=== PATIENT | female | born 1940 | race Caucasian/White ===

== ENCOUNTER → 2016-08-31 | Outpatient (CLI) | payer MEDICARE, OTHER ==
[~2016-08-31] MED LIST: ALLERGY SHOTS; ASTELIN; ASTELIN NASAL SPRAY; CALCCHW12; CALCCHW12 OR; CETI10TA; CETI10TA OR; FLECTOR PATCH; LIPI20TA; LIPI20TA OR; LISI10TA4; LISI10TA4 OR; MULTIVIT PO; NASONEX; NEUR100C; NEUR100C OR; OMEP20TA7 OR; PREV15CA OR; PRIL20CA; PRIL40CA; SING10TA31; SING10TA31 OR; SKEL800T5; SKEL800T5 OR; THERGRAN; VIT; VITA100T5; VITA400C; VITA400C OR; VITA500C OR; VITA500T; ZEST20TA4 OR
--- NOTE | 2016-09-01 07:27 | REP ---
TWO VIEW CHEST: Two views of the chest are performed and compared with prior study of 10/14/2005. There is mild bibasilar fibrotic change. No acute infiltrate is seen. Heart is normal in size and there is some calcification and tortuosity of the thoracic aorta. The mediastinal silhouette is unchanged. There are degenerative changes of the spine. IMPRESSION: Stable chronic fibrotic changes. No evidence of acute pulmonary disease. Signed by Willi Uribe MD 09/01/2016 01:53 P
== END ==
LOC: M ADAMS 10:47
PROVIDERS: ATTEND Physician Assistant
DX: R05 Cough (principal)

== ENCOUNTER → 2016-11-23 | Outpatient (CLI) | payer MEDICARE, OTHER ==
[2016-11-23 16:19] LABS: BASO % 0.8 % (0.0-1.0); EOS # 0.1 K/mm3 (0.0-0.50); EOS % 1.7 % (0.0-3.0); LARGE UNSTAINED CELL # 0.1 K/mm3 (0.0-0.4); LARGE UNSTAINED CELL % 1.9 % (0.0-4.0); LYMPH # 1.2 K/mm3 (1.5-4.5); LYMPH % 29.1 % (24.0-44.0); MEAN CORPUSCULAR HEMOGLOBIN 30.7 pg (27.0-33.0); MEAN CORPUSCULAR HGB CONC 32.9 g/dl (32.0-36.5); MEAN CORPUSCULAR VOLUME 93.2 fl (80.0-96.0); MONO # 0.2 K/mm3 (0.0-0.8); MONO % 5.2 % (0.0-5.0); NEUTROPHILS # 2.4 K/mm3 (1.8-7.7); NEUTROPHILS % 61.2 % (36.0-66.0); PLATELET COUNT, AUTOMATED 279 k/mm3 (150-450)
[2016-11-23 16:32] LABS: ALBUMIN 3.8 GM/DL (3.2-5.2); ALBUMIN/GLOBULIN RATIO 1.19 (1.00-1.93); ALKALINE PHOSPHATASE 62 U/L (45-117); ALT/SGPT 29 U/L (12-78); ANION GAP 4 MEQ/L (8-16); AST/SGOT 16 U/L (15-37); BILIRUBIN,TOTAL 0.3 MG/DL (0.2-1.0); BLOOD UREA NITROGEN 22 MG/DL (7-18); CALCIUM LEVEL 8.9 MG/DL (8.8-10.2); CARBON DIOXIDE LEVEL 33 MEQ/L (21-32); CHLORIDE LEVEL 105 MEQ/L (98-107); CREATININE FOR GFR 1.07 MG/DL (0.55-1.02); GLOMERULAR FILTRATION RATE 52.9 (>39); GLUCOSE, FASTING 106 MG/DL (83-110); POTASSIUM SERUM 4.5 MEQ/L (3.5-5.1); SODIUM LEVEL 142 MEQ/L (136-145)
[2016-11-25 09:09] LABS: THYROID PEROXIDASE ANTIBODY < 28.0 U/ML (<60.0)
[2016-11-26 09:27] LABS: ALBUMIN 4.09 GM/DL (3.29-5.55); ALBUMIN % 58.4 % (55.8-66.1); GAMMA GLOBULIN % 14.4 % (11.1-18.8)
== END ==
LOC: M ADAMS 08:35
PROVIDERS: ATTEND Allergy & Immunology
DX: L29.9 Pruritus, unspecified (principal); R53.81 Other malaise

== ENCOUNTER → 2018-04-14 | Outpatient (REF) | payer MEDICARE, OTHER ==
[2018-04-14 14:59] LABS: IRON (FE) 83 UG/DL (50-170); PERCENT SATURATION 26.8 % (13.2-45.0); TOTAL IRON BINDING CAPACITY 310 UG/DL (250-450)
== END ==
LOC: M LAB REF 13:04
DX: D64.9 Anemia, unspecified (principal)
CPT/HCPCS: 83550

== ENCOUNTER → 2020-03-02 | Outpatient (CLI) | payer MEDICARE, BC, OTHER ==
--- NOTE | 2020-03-02 14:54 | REPVR ---
PROCEDURE INFORMATION: Exam: CT Maxillofacial Without Contrast, Sinus Exam date and time: 03/02/2020 2:47 PM Age: 79 years old Clinical indication: Condition or disease; Other: Sinusitis; Additional info: Chronic pansinusitis TECHNIQUE: Imaging protocol: CT Maxillofacial without contrast. Focus on the sinuses. Radiation optimization: All CT scans at this facility use at least one of these dose optimization techniques: automated exposure control; mA and/or kV adjustment per patient size (includes targeted exams where dose is matched to clinical indication); or iterative reconstruction. COMPARISON: No relevant prior studies available. FINDINGS: Frontal sinuses: Normal. No air-fluid levels. Ethmoid air cells: Minimal mucosal thickening is present in the ethmoid air cells. Sphenoid sinuses: Normal. No air-fluid levels. Maxillary sinuses: There is mild mucosal thickening in the maxillary sinuses. No air-fluid levels. 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 Orbits: The orbital structures are unremarkable. Nasal cavity/Septum: There is rightward bowing of the anterior nasal septum. Soft tissues: Unremarkable. Bones/joints: Unremarkable. IMPRESSION: 1. No acute abnormality. 2. Chronic findings as discussed above. Electronically signed by: Agustin Jiang On 03/02/2020 14:54:29 PM
== END ==
LOC: M RAD 14:35
PROVIDERS: ATTEND Otolaryngology
DX: J32.4 Chronic pansinusitis (principal); J31.0 Chronic rhinitis

== ENCOUNTER → 2020-10-11 | Outpatient (REF) | payer MEDICARE, OTHER | LOC: M LAB REF 19:23 | PROVIDERS: ATTEND Physician Assistant | DX: D23.62 Other benign neoplasm of skin of left upper limb, including shoulder (principal) | CPT/HCPCS: 11102; 88305; G0463 ==

== ENCOUNTER → 2021-02-21 | Outpatient (CLI) | payer MEDICARE, BC ==
--- NOTE | 2021-02-21 11:22 | DEXAMM ---
INDICATION: [age] AGE REL OSTEOPOROSIS W/O FX. Bilateral hip replacement. COMPARISON: Comparison study September 06, 2015. TECHNIQUE: Bone density was measured using dual-energy x-ray absorptionmetry (DEXA). FINDINGS: AP SPINE L1-L4 BMD 1.405 g/cm2 Young Adult T-Score 1.7 Age Matched Z-Score 3.6. LEFT FOREARM, RADIUS 33% BMD 0.941 g/cm2 Young Adult T-Score 0.7 Age Matched Z-Score 3.6. IMPRESSION: There is normal bone density of the spine. There is normal bone density of the left forearm. The density of the spine has increased 9.4% since the initial exam on February 03, 2006. The density of the spine increased 0.1% since most recent exam on September 06, 2015. FOLLOW-UP: Recommendation for the next bone density exam: 5 years. <Electronically signed by Ziggy Avila > 02/21/21 [id number]
== END ==
LOC: M WHC 09:10
PROVIDERS: ATTEND Internal Medicine
DX: M81.0 Age-related osteoporosis without current pathological fracture (principal)

== ENCOUNTER → 2022-06-13 | Outpatient (CLI) | payer MEDICARE, BC, OTHER | LOC: M CARPUL 08:18 | PROVIDERS: ATTEND Internal Medicine | DX: R01.1 Cardiac murmur, unspecified (principal); I34.81 Nonrheumatic mitral (valve) annulus calcification ==

== ENCOUNTER → 2022-07-15 | Outpatient (CLI) | payer MEDICARE, BC, OTHER | LOC: M WHC 08:47 | PROVIDERS: ATTEND Specialist | DX: Z12.31 Encounter for screening mammogram for malignant neoplasm of breast (principal) ==

== ENCOUNTER → 2022-11-22 | Outpatient (CLI) | payer MEDICARE, BC, OTHER | LOC: M SLEEP 20:00 | PROVIDERS: ATTEND Internal Medicine Pulmonary Disease | DX: G47.33 Obstructive sleep apnea (adult) (pediatric) (principal) ==

== ENCOUNTER → 2023-01-02 | Outpatient (CLI) | payer MEDICARE, BC, OTHER | LOC: M PLARAD 15:15 | PROVIDERS: ATTEND Podiatrist | DX: S96.012A Strain of muscle and tendon of long flexor muscle of toe at ankle and foot level, left foot, initial encounter (principal); M79.672 Pain in left foot; X58.XXXA Exposure to other specified factors, initial encounter; Y99.9 Unspecified external cause status; Y92.9 Unspecified place or not applicable ==

== ENCOUNTER → 2023-05-30 | Outpatient (CLI) | payer MEDICARE, BC, OTHER | LOC: M WHC 10:28 | PROVIDERS: ATTEND Physician Assistant Medical | DX: N28.1 Cyst of kidney, acquired (principal) ==

== ENCOUNTER → 2023-07-09 | Outpatient (REF) | payer MEDICARE, BC, OTHER ==
[2023-07-09 17:39] LABS: APPEARANCE, URINE HAZY (CLEAR); BACTERIA, URINE AUTO 1+ (NEGATIVE); BILIRUBIN, URINE AUTO NEGATIVE (NEGATIVE); BLOOD, URINE BLOOD 1+ (NEGATIVE); COLOR, URINE YELLOW (YELLOW); GLUCOSE, URINE (UA) AUTO NEGATIVE (NEGATIVE); KETONE, URINE AUTO NEGATIVE (NEGATIVE); LEUKOCYTE ESTERASE, URINE AUTO 3+ (NEGATIVE); MUCUS, URINE SMALL (NEGATIVE); NITRITE, URINE AUTO NEGATIVE (NEGATIVE); PROTEIN, URINE AUTO NEGATIVE (NEGATIVE); RBC, URINE AUTO 2 /HPF (0-3); SPECIFIC GRAVITY URINE AUTO 1.014 (1.002-1.035); SQUAMOUS EPITHELIAL CELL UR AU 1 /HPF (0-6); TRANSITIONAL EPITHELIAL AUTO <1 /HPF; UROBILINOGEN, URINE AUTO 0.2 mg/dL (0.0-2.0); WBC, URINE AUTO 16 /HPF (0-3)
== END ==
LOC: M SMT 16:38
PROVIDERS: ATTEND Urology
DX: N32.9 Bladder disorder, unspecified (principal)

== ENCOUNTER → 2023-07-18 | Outpatient (CLI) | payer MEDICARE, BC, OTHER | LOC: M WHC 10:04 | PROVIDERS: ATTEND Internal Medicine | DX: Z12.31 Encounter for screening mammogram for malignant neoplasm of breast (principal) ==

== ENCOUNTER → 2023-08-08 | Outpatient (REF) | payer MEDICARE, OTHER ==
[~2023-08-08] MED LIST changes: +ATOR1TAB21 PO; +LISI10TA24 PO; +OMEP1CAP73 PO; +PROA1AER2 INH; +QVAR80AE8 INH; +SUPETAB44 PO; +SYST1SOL4 OU; +THERTAB52 PO; +VITA100093 PO; +allergy shots
[2023-08-08 13:34] LABS: APPEARANCE, URINE CLEAR (CLEAR); BACTERIA, URINE AUTO NEGATIVE (NEGATIVE); BILIRUBIN, URINE AUTO NEGATIVE (NEGATIVE); BLOOD, URINE BLOOD NEGATIVE (NEGATIVE); COLOR, URINE YELLOW (YELLOW); GLUCOSE, URINE (UA) AUTO NEGATIVE (NEGATIVE); KETONE, URINE AUTO NEGATIVE (NEGATIVE); LEUKOCYTE ESTERASE, URINE AUTO 3+ (NEGATIVE); NITRITE, URINE AUTO NEGATIVE (NEGATIVE); PROTEIN, URINE AUTO NEGATIVE (NEGATIVE); RBC, URINE AUTO 2 /HPF (0-3); SPECIFIC GRAVITY URINE AUTO 1.014 (1.002-1.035); SQUAMOUS EPITHELIAL CELL UR AU 2 /HPF (0-6); UROBILINOGEN, URINE AUTO 0.2 mg/dL (0.0-2.0); WBC, URINE AUTO 9 /HPF (0-3)
== END ==
LOC: M LAB REF 12:21
PROVIDERS: ATTEND Internal Medicine
DX: Z01.818 Encounter for other preprocedural examination (principal)

== ENCOUNTER → 2023-08-08 | Outpatient (CLI) | payer MEDICARE, BC, OTHER | LOC: M RAD 11:31 | PROVIDERS: ATTEND Urology | DX: Z01.818 Encounter for other preprocedural examination (principal); D49.4 Neoplasm of unspecified behavior of bladder; Z79.899 Other long term (current) drug therapy ==

== ENCOUNTER → 2023-08-12 | Outpatient (REF) | payer MEDICARE, OTHER ==
[2023-08-12 12:24] LABS: INR 0.97; PROTHROMBIN TIME 12.6 SECONDS (12.5-14.5)
[2023-08-12 12:25] LABS: PARTIAL THROMBOPLASTIN TIME 26.7 SECONDS (24.8-34.2)
== END ==
LOC: M LAB REF 12:05
PROVIDERS: ATTEND Internal Medicine
DX: Z01.818 Encounter for other preprocedural examination (principal); D49.4 Neoplasm of unspecified behavior of bladder

== ENCOUNTER 2023-08-18 06:50 | Day surgery (SDC) | payer MEDICARE, BC, OTHER ==
[~2023-08-18] VITALS: Ht 156.2 cm; Wt 78.8 kg
[2023-08-18] MEDS ORDERED: propofoL 200 MG/20 ML VIAL As Ordered ONE (06:56)
[2023-08-18] MEDS ORDERED: SUGAMMADEX SODIUM 500 MG/5 ML VIAL (BRIDION) As Ordered ONE (06:56)
[2023-08-18] MEDS ORDERED: ROCURONIUM BROMIDE 50MG/5ML VIAL As Ordered ONE (06:56)
[2023-08-18] MEDS ORDERED: LIDOCAINE 2% 100MG/5ML SDV (FOR ANES.) As Ordered ONE (06:56)
[2023-08-18] MEDS ORDERED: ONDANSETRON 4MG 2ML VIAL As Ordered ONE (06:57)
[2023-08-18] MEDS ORDERED: LR 1,000 ML IV SCH ×2 (07:00→08:25)
[2023-08-18] MEDS ORDERED: ISOVUE-300 61% 100ML VIAL As Ordered ONE (07:23)
[2023-08-18] MEDS ORDERED: fentaNYL 100 MCG/2 ML INJECTION As Ordered ONE (07:46)
[2023-08-18] MEDS: ceFAZolin SOD 2 GM in IV 1 EA IV ONE (07:51)
[2023-08-18] MEDS ORDERED: ACETAMINOPHEN 1000MG 100ML IV BAG As Ordered ONE (07:54)
[2023-08-18] MEDS ORDERED: OXYB5TAB14 PO (08:14)
[2023-08-18] MEDS ORDERED: PYRI1TAB5 PO (08:14)
[2023-08-18] MEDS ORDERED: MACR100C43 PO (08:14)
[2023-08-18] MEDS ORDERED: ONDANSETRON 4MG 2ML VIAL IV PRN (08:25)
[2023-08-18] MEDS ORDERED: oxyCODONE 5MG TAB PO PRN (08:25)
[2023-08-18] MEDS ORDERED: fentaNYL 100 MCG/2 ML INJECTION IV PRN (08:25)
[2023-08-18 09:45] VITALS: BP 129/62; TEMP 96.9; O2SAT 97
== END 2023-08-18 09:50 | disposition home or self-care (01) ==
LOC: M SDC 06:50
PROVIDERS: ATTEND Urology
DX: C67.9 Malignant neoplasm of bladder, unspecified (principal); I10 Essential (primary) hypertension; E78.5 Hyperlipidemia, unspecified; K21.9 Gastro-esophageal reflux disease without esophagitis; J45.909 Unspecified asthma, uncomplicated; Z79.899 Other long term (current) drug therapy; Z79.51 Long term (current) use of inhaled steroids; G47.33 Obstructive sleep apnea (adult) (pediatric); J30.2 Other seasonal allergic rhinitis
CPT/HCPCS: 52235; 88305; J0131; J0690; J1100; J2405; J3010; Q9967

== ENCOUNTER → 2023-11-18 | Outpatient (REF) | payer MEDICARE, BC, OTHER ==
[~2023-11-18] MED LIST changes: +MACR100C43 PO; +OXYB5TAB14 PO; +PYRI1TAB5 PO
[2023-11-18 17:58] LABS: APPEARANCE, URINE HAZY (CLEAR); BACTERIA, URINE AUTO 1+ (NEGATIVE); BILIRUBIN, URINE AUTO NEGATIVE (NEGATIVE); BLOOD, URINE BLOOD NEGATIVE (NEGATIVE); COLOR, URINE YELLOW (YELLOW); GLUCOSE, URINE (UA) AUTO NEGATIVE (NEGATIVE); KETONE, URINE AUTO NEGATIVE (NEGATIVE); LEUKOCYTE ESTERASE, URINE AUTO 3+ (NEGATIVE); NITRITE, URINE AUTO NEGATIVE (NEGATIVE); PROTEIN, URINE AUTO NEGATIVE (NEGATIVE); RBC, URINE AUTO 1 /HPF (0-3); SPECIFIC GRAVITY URINE AUTO 1.008 (1.002-1.035); SQUAMOUS EPITHELIAL CELL UR AU 0 /HPF (0-6); UROBILINOGEN, URINE AUTO 0.2 mg/dL (0.0-2.0); WBC, URINE AUTO 16 /HPF (0-3)
== END ==
LOC: M SMT 17:12
PROVIDERS: ATTEND Urology
DX: Z85.51 Personal history of malignant neoplasm of bladder (principal)

== ENCOUNTER 2024-02-03 10:53 | Emergency (ER) | payer MEDICARE, BC ==
[~2024-02-03] VITALS: Ht 157.5 cm; Wt 75.4 kg
[2024-02-03 13:32] LABS: BASO % 0.6 % (0.0-1.0); EOS # 0.1 10^3/uL (0.0-0.5); EOS % 0.9 % (0.0-3.0); HEMATOCRIT 39.5 % (36.0-47.0); HEMOGLOBIN 12.6 g/dl (12.0-15.5); LYMPH # 1.8 10^3/uL (1.5-5.0); LYMPH % 27.7 % (24.0-44.0); MEAN CORPUSCULAR HEMOGLOBIN 29.7 pg (27.0-33.0); MEAN CORPUSCULAR HGB CONC 31.9 g/dl (32.0-36.5); MEAN CORPUSCULAR VOLUME 93.2 fl (80.0-96.0); MONO # 0.4 10^3/uL (0.0-0.8); MONO % 6.2 % (2.0-8.0); NEUTROPHILS # 4.2 10^3/uL (1.5-8.5); NEUTROPHILS % 64.3 % (36.0-66.0); PLATELET COUNT, AUTOMATED 311 10^3/uL (150-450); RED BLOOD COUNT 4.24 10^6/uL (4.00-5.40); WHITE BLOOD COUNT 6.5 10^3/uL (4.0-10.0)
[2024-02-03 13:45] LABS: INR 0.99; PROTHROMBIN TIME 12.8 SECONDS (12.5-14.5)
[2024-02-03 13:48] LABS: LIPASE 33 U/L (12-53)
[2024-02-03 13:50] LABS: ALBUMIN 4.1 G/DL (3.2-5.2); ALKALINE PHOSPHATASE 70 U/L (46-116); ALT/SGPT 28 U/L (7.0-40); AST/SGOT 26 U/L (<34); BILIRUBIN,DIRECT < 0.1 MG/DL (<0.4); BILIRUBIN,TOTAL 0.4 MG/DL (0.3-1.2); BLOOD UREA NITROGEN 15 MG/DL (9-23); CALCIUM LEVEL 9.6 MG/DL (8.3-10.6); CARBON DIOXIDE LEVEL 32 MMOL/L (20-31); CHLORIDE LEVEL 102 MMOL/L (98-107); CK-MB VALUE MASS 4.3 NG/ML (<3.6); CREATININE FOR GFR 0.95 MG/DL (0.55-1.30); GLOMERULAR FILTRATION RATE 59.7 (>32); GLUCOSE, FASTING 95 MG/DL (74-106); SODIUM LEVEL 138 MMOL/L (136-145); TOTAL PROTEIN 7.4 G/DL (5.7-8.2)
[2024-02-03 13:51] LABS: CPK CREATINE PHOSPHOKINASE 254 U/L (34-145); MB/CK RELATIVE INDEX 1.69 (< OR =4)
[2024-02-03] MEDS: LIDOCAINE 5% (LIDODERM) PATCH TD ONE (15:26)
[2024-02-03] MEDS: KETOROLAC 30 MG/ML 1ML VIAL IM ONE (15:27)
[2024-02-03] MEDS ORDERED: KETO10TAB PO (16:12)
[2024-02-03] MEDS ORDERED: LIDO5DIS41 TOP (16:12)
[2024-02-03] MEDS ORDERED: GABA-1171 PO (16:12)
[2024-02-03 16:28] VITALS: BP 161/70; TEMP 97.4; O2SAT 99
== END 2024-02-03 16:29 | disposition home or self-care (01) ==
LOC: M ED 10:53
DX: S46.812A Strain of other muscles, fascia and tendons at shoulder and upper arm level, left arm, initial encounter (principal); X50.0XXA Overexertion from strenuous movement or load, initial encounter; J45.909 Unspecified asthma, uncomplicated; G47.33 Obstructive sleep apnea (adult) (pediatric); E78.5 Hyperlipidemia, unspecified; I10 Essential (primary) hypertension; Z88.2 Allergy status to sulfonamides; Z91.048 Other nonmedicinal substance allergy status; Z90.89 Acquired absence of other organs; Y92.9 Unspecified place or not applicable; Y93.9 Activity, unspecified; Y99.9 Unspecified external cause status; Z79.02 Long term (current) use of antithrombotics/antiplatelets; Z79.52 Long term (current) use of systemic steroids; Z79.811 Long term (current) use of aromatase inhibitors; Z79.899 Other long term (current) drug therapy
CPT/HCPCS: 71045; 80048; 80076; 82550; 82553; 83690; 84484; 85025; 85610; 93005; 96372; 99284; J1885

== ENCOUNTER → 2024-02-18 | Outpatient (REF) | payer MEDICARE, BC ==
[~2024-02-18] MED LIST changes: +GABA-1171 PO; +KETO10TAB PO; +LIDO5DIS41 TOP
[2024-02-18 18:14] LABS: AMORPHOUS SEDIMENT SMALL (NEGATIVE); APPEARANCE, URINE CLOUDY (CLEAR); BACTERIA, URINE AUTO 1+ (NEGATIVE); BILIRUBIN, URINE AUTO NEGATIVE (NEGATIVE); BLOOD, URINE BLOOD 1+ (NEGATIVE); COLOR, URINE YELLOW (YELLOW); GLUCOSE, URINE (UA) AUTO NEGATIVE (NEGATIVE); KETONE, URINE AUTO NEGATIVE (NEGATIVE); LEUKOCYTE ESTERASE, URINE AUTO 3+ (NEGATIVE); NITRITE, URINE AUTO NEGATIVE (NEGATIVE); PROTEIN, URINE AUTO 1+ mg/dL (NEGATIVE); RBC, URINE AUTO 2 /HPF (0-3); SPECIFIC GRAVITY URINE AUTO 1.019 (1.002-1.035); SQUAMOUS EPITHELIAL CELL UR AU 8 /HPF (0-6); UROBILINOGEN, URINE AUTO 0.2 mg/dL (0.0-2.0); WBC, URINE AUTO 102 /HPF (0-3)
== END ==
LOC: M SMT 17:07
PROVIDERS: ATTEND Urology
DX: Z85.51 Personal history of malignant neoplasm of bladder (principal)

== ENCOUNTER → 2024-05-19 | Outpatient (REF) | payer MEDICARE, BC ==
[2024-05-19 18:09] LABS: APPEARANCE, URINE HAZY (CLEAR); BACTERIA, URINE AUTO NEGATIVE (NEGATIVE); BILIRUBIN, URINE AUTO NEGATIVE (NEGATIVE); BLOOD, URINE BLOOD NEGATIVE (NEGATIVE); COLOR, URINE YELLOW (YELLOW); GLUCOSE, URINE (UA) AUTO NEGATIVE (NEGATIVE); KETONE, URINE AUTO NEGATIVE (NEGATIVE); LEUKOCYTE ESTERASE, URINE AUTO NEGATIVE (NEGATIVE); NITRITE, URINE AUTO NEGATIVE (NEGATIVE); PROTEIN, URINE AUTO NEGATIVE (NEGATIVE); RBC, URINE AUTO 0 /HPF (0-3); SPECIFIC GRAVITY URINE AUTO 1.014 (1.002-1.035); SQUAMOUS EPITHELIAL CELL UR AU 0 /HPF (0-6); UROBILINOGEN, URINE AUTO 0.2 mg/dL (0.0-2.0); WBC, URINE AUTO 0 /HPF (0-3)
== END ==
LOC: M SMT 17:05
PROVIDERS: ATTEND Urology
DX: Z85.51 Personal history of malignant neoplasm of bladder (principal)

== ENCOUNTER → 2024-07-19 | Outpatient (CLI) | payer MEDICARE, BC ==
[2024-07-19 10:29] LABS: CALCIUM LEVEL 9.3 MG/DL (8.3-10.6); CREATININE FOR GFR 1.05 MG/DL (0.55-1.30); GLOMERULAR FILTRATION RATE 53.2 (>32)
== END ==
LOC: M LAB 09:04
PROVIDERS: ATTEND Urology
DX: Z85.51 Personal history of malignant neoplasm of bladder (principal)

== ENCOUNTER → 2024-07-19 | Outpatient (CLI) | payer MEDICARE, BC | LOC: M WHC 08:08 | PROVIDERS: ATTEND Internal Medicine | DX: Z12.31 Encounter for screening mammogram for malignant neoplasm of breast (principal); R92.313 Mammographic fatty tissue density, bilateral breasts; Z85.51 Personal history of malignant neoplasm of bladder ==

== ENCOUNTER → 2024-07-23 | Outpatient (CLI) | payer MEDICARE, BC ==
[~2024-07-23] MED LIST changes: +ISOVUE-370 76% 100ML VIAL As Ordered ONE
== END ==
LOC: M RAD 09:34
PROVIDERS: ATTEND Urology
DX: K57.30 Diverticulosis of large intestine without perforation or abscess without bleeding (principal); Z85.51 Personal history of malignant neoplasm of bladder
CPT/HCPCS: 74178; Q9967

== ENCOUNTER → 2024-08-17 | Outpatient (REF) | payer MEDICARE, OTHER ==
[~2024-08-17] MED LIST changes: -ISOVUE-370 76% 100ML VIAL As Ordered ONE
[2024-08-17 18:30] LABS: APPEARANCE, URINE CLEAR (CLEAR); BACTERIA, URINE AUTO NEGATIVE (NEGATIVE); BILIRUBIN, URINE AUTO NEGATIVE (NEGATIVE); BLOOD, URINE BLOOD NEGATIVE (NEGATIVE); COLOR, URINE YELLOW (YELLOW); GLUCOSE, URINE (UA) AUTO NEGATIVE (NEGATIVE); KETONE, URINE AUTO NEGATIVE (NEGATIVE); LEUKOCYTE ESTERASE, URINE AUTO 2+ (NEGATIVE); MUCUS, URINE SMALL (NEGATIVE); NITRITE, URINE AUTO NEGATIVE (NEGATIVE); PROTEIN, URINE AUTO NEGATIVE (NEGATIVE); RBC, URINE AUTO 3 /HPF (0-3); SPECIFIC GRAVITY URINE AUTO 1.011 (1.002-1.035); SQUAMOUS EPITHELIAL CELL UR AU 0 /HPF (0-6); UROBILINOGEN, URINE AUTO 0.2 mg/dL (0.0-2.0); WBC, URINE AUTO 9 /HPF (0-3)
== END ==
LOC: M SMT 17:05
PROVIDERS: ATTEND Urology
DX: Z85.51 Personal history of malignant neoplasm of bladder (principal)

== ENCOUNTER → 2024-08-23 | Outpatient (REF) | payer MEDICARE, OTHER ==
[2024-08-23 17:56] LABS: LIPASE 35 U/L (12-53)
[2024-08-23 17:57] LABS: AMYLASE 80 U/L (30-118)
== END ==
LOC: M LAB REF 16:21
PROVIDERS: ATTEND Nurse Practitioner Adult Health
DX: R10.9 Unspecified abdominal pain (principal); R19.7 Diarrhea, unspecified

== ENCOUNTER → 2024-08-24 | Outpatient (REF) | payer MEDICARE, OTHER | LOC: M LAB REF 16:41 | PROVIDERS: ATTEND Nurse Practitioner Adult Health | DX: R10.9 Unspecified abdominal pain (principal); R19.7 Diarrhea, unspecified ==

== ENCOUNTER 2024-10-01 21:40 | Emergency (ER) | payer MEDICARE, BC ==
[~2024-10-01] VITALS: Ht 157.5 cm; Wt 68.6 kg
[2024-10-01 22:57] LABS: BASO % 0.3 % (0.0-1.0); HEMATOCRIT 40.5 % (36.0-47.0); HEMOGLOBIN 13.6 g/dl (12.0-15.5); LYMPH % 6.8 % (24.0-44.0); MEAN CORPUSCULAR HEMOGLOBIN 29.6 pg (27.0-33.0); MEAN CORPUSCULAR HGB CONC 33.6 g/dl (32.0-36.5); MONO # 0.6 10^3/uL (0.0-0.8); MONO % 4.1 % (2.0-8.0); NEUTROPHILS # 12.7 10^3/uL (1.5-8.5); NEUTROPHILS % 88.5 % (36.0-66.0); PLATELET COUNT, AUTOMATED 410 10^3/uL (150-450); WHITE BLOOD COUNT 14.4 10^3/uL (4.0-10.0)
[2024-10-01] MEDS: ONDANSETRON 4MG 2ML VIAL IV ONE (22:58)
[2024-10-01] MEDS: PANTOPRAZOLE 40MG VIAL IV ONE (22:58)
[2024-10-01] MEDS: NS 500 ML IV ONE (23:00)
[2024-10-01 23:18] LABS: ALBUMIN 4.1 G/DL (3.2-5.2); BILIRUBIN,DIRECT 0.1 MG/DL (<0.4); BILIRUBIN,TOTAL 0.6 MG/DL (0.3-1.2); CALCIUM LEVEL 9.7 MG/DL (8.3-10.6); CREATININE FOR GFR 1.33 MG/DL (0.55-1.30); GLOMERULAR FILTRATION RATE 39.2 (>32); POTASSIUM SERUM 4.5 MMOL/L (3.5-5.1); TOTAL PROTEIN 7.7 G/DL (5.7-8.2)
[2024-10-02] MEDS ORDERED: ONDA-282 PO (00:40)
[2024-10-02 00:45] VITALS: BP 137/64; TEMP 96.7; O2SAT 100
== END 2024-10-02 01:00 | disposition home or self-care (01) ==
LOC: EDBD 21:40 → M ED 21:40
DX: A08.4 Viral intestinal infection, unspecified (principal); K21.9 Gastro-esophageal reflux disease without esophagitis; I10 Essential (primary) hypertension; J45.909 Unspecified asthma, uncomplicated; Z90.89 Acquired absence of other organs; Z88.8 Allergy status to other drugs, medicaments and biological substances; Z91.048 Other nonmedicinal substance allergy status; Z79.52 Long term (current) use of systemic steroids; Z79.02 Long term (current) use of antithrombotics/antiplatelets; Z79.899 Other long term (current) drug therapy
CPT/HCPCS: 80048; 80076; 83690; 85025; 96361; 96374; 99284; J2405; J2470

== ENCOUNTER 2024-10-05 00:15 | Emergency (ER) | payer MEDICARE, BC ==
[~2024-10-05] VITALS: Ht 152.4 cm; Wt 68.6 kg
[~2024-10-05 00:15] MED LIST changes: +ONDA-282 PO
[2024-10-05 07:20] LABS: BASO % 0.1 % (0.0-1.0); HEMATOCRIT 41.3 % (36.0-47.0); HEMOGLOBIN 13.8 g/dl (12.0-15.5); LYMPH # 0.5 10^3/uL (1.5-5.0); MEAN CORPUSCULAR HEMOGLOBIN 29.6 pg (27.0-33.0); MEAN CORPUSCULAR HGB CONC 33.4 g/dl (32.0-36.5); MEAN CORPUSCULAR VOLUME 88.4 fl (80.0-96.0); MONO % 5.5 % (2.0-8.0); NEUTROPHILS # 16.2 10^3/uL (1.5-8.5); NEUTROPHILS % 90.9 % (36.0-66.0); PLATELET COUNT, AUTOMATED 354 10^3/uL (150-450); RED BLOOD COUNT 4.67 10^6/uL (4.00-5.40); WHITE BLOOD COUNT 17.8 10^3/uL (4.0-10.0)
[2024-10-05 07:48] LABS: ALBUMIN 3.7 G/DL (3.2-5.2); BILIRUBIN,DIRECT 0.2 MG/DL (<0.4); BILIRUBIN,TOTAL 0.7 MG/DL (0.3-1.2); CALCIUM LEVEL 10.3 MG/DL (8.3-10.6); CREATININE FOR GFR 0.99 MG/DL (0.55-1.30); GLOMERULAR FILTRATION RATE 55.9 (>32); MB/CK RELATIVE INDEX 2.06 (< OR =4); POTASSIUM SERUM 4.1 MMOL/L (3.5-5.1); TOTAL PROTEIN 7.2 G/DL (5.7-8.2)
[2024-10-05] MEDS: SUCRALFATE SUSP 1GM/10ML UD PO ONE (09:24)
[2024-10-05] MEDS: NS (Normal Saline) 0.9% 1,000 ML IV ONE (09:24)
[2024-10-05] MEDS: PANTOPRAZOLE 40MG VIAL IV ONE (09:24)
[2024-10-05] MEDS: ONDANSETRON 4MG 2ML VIAL IV ONE (09:24)
[2024-10-05] MEDS ORDERED: ISOVUE-370 76% 100ML VIAL As Ordered ONE (11:13)
[2024-10-05] MEDS ORDERED: SUCR1TA PO (12:29)
[2024-10-05] MEDS ORDERED: PANT40TA29 PO (12:29)
[2024-10-05] MEDS ORDERED: ONDA-282 PO (12:29)
[2024-10-05 12:30] VITALS: BP 156/70; TEMP 97.1; O2SAT 97
[2024-10-19] MEDS ORDERED: MAGN400T35 PO (17:20)
[2024-10-19] MEDS ORDERED: PANT-23 PO (17:20)
== END 2024-10-05 12:45 | disposition home or self-care (01) ==
LOC: M ED 00:15
DX: K21.00 Gastro-esophageal reflux disease with esophagitis, without bleeding (principal); J98.11 Atelectasis; N28.1 Cyst of kidney, acquired; K76.0 Fatty (change of) liver, not elsewhere classified; K57.30 Diverticulosis of large intestine without perforation or abscess without bleeding; E78.5 Hyperlipidemia, unspecified; J45.909 Unspecified asthma, uncomplicated; G47.30 Sleep apnea, unspecified; I10 Essential (primary) hypertension; Z79.52 Long term (current) use of systemic steroids; Z79.02 Long term (current) use of antithrombotics/antiplatelets; Z79.83 Long term (current) use of bisphosphonates; Z79.899 Other long term (current) drug therapy; Z88.8 Allergy status to other drugs, medicaments and biological substances; Z91.048 Other nonmedicinal substance allergy status
CPT/HCPCS: 74177; 80048; 80076; 82550; 82553; 83605; 83690; 84484; 85025; 93005; 96361; 96374; 99284; J2405; J2470; Q9967

== ENCOUNTER 2024-10-07 15:13 | Observation (INO) | payer MEDICARE, BC ==
[~2024-10-07] VITALS: Ht 154.9 cm; Wt 65.4 kg
[~2024-10-07 15:13] MED LIST changes: +PANT40TA29 PO; +SUCR1TA PO
[2024-10-07 16:30] VITALS: BP 130/60; TEMP 97.7; O2SAT 97
[2024-10-07] MEDS ORDERED: MORPHINE 2 MG/ML 1ML VIAL IV PRN (16:45)
[2024-10-07 17:31] LABS: BASO % 0.2 % (0.0-1.0); EOS % 0.1 % (0.0-3.0); HEMATOCRIT 39.3 % (36.0-47.0); HEMOGLOBIN 12.9 g/dl (12.0-15.5); LYMPH # 1.6 10^3/uL (1.5-5.0); LYMPH % 12.1 % (24.0-44.0); MEAN CORPUSCULAR HEMOGLOBIN 29.5 pg (27.0-33.0); MEAN CORPUSCULAR HGB CONC 32.8 g/dl (32.0-36.5); MEAN CORPUSCULAR VOLUME 89.9 fl (80.0-96.0); MONO # 0.9 10^3/uL (0.0-0.8); MONO % 6.9 % (2.0-8.0); NEUTROPHILS # 10.7 10^3/uL (1.5-8.5); NEUTROPHILS % 80.3 % (36.0-66.0); PLATELET COUNT, AUTOMATED 344 10^3/uL (150-450); RED BLOOD COUNT 4.37 10^6/uL (4.00-5.40); WHITE BLOOD COUNT 13.3 10^3/uL (4.0-10.0)
[2024-10-07 17:49] LABS: INR 1.04; PARTIAL THROMBOPLASTIN TIME 25.5 SECONDS (24.8-34.2); PROTHROMBIN TIME 13.9 SECONDS (12.5-14.5)
[2024-10-07] MEDS: SUCRALFATE SUSP 1GM/10ML UD PO SCH (18:15)
[2024-10-07 18:29] LABS: ALBUMIN 3.3 G/DL (3.2-5.2); ALKALINE PHOSPHATASE 77 U/L (35-104); ALT/SGPT 16 U/L (7.0-40); AST/SGOT 18 U/L (<34); BILIRUBIN,TOTAL 0.4 MG/DL (0.3-1.2); BLOOD UREA NITROGEN 26 MG/DL (9-23); CA19-9 TUMOR MARKER,CARBOHYDRA 29.8 U/ML (<35.0); CARBON DIOXIDE LEVEL 29 MMOL/L (20-31); CARCINOEMBRYONIC ANTIGEN < 2.0 NG/ML (<2.5); CHLORIDE LEVEL 97 MMOL/L (98-107); CREATININE FOR GFR 0.99 MG/DL (0.55-1.30); GLOMERULAR FILTRATION RATE 55.9 (>32); GLUCOSE, FASTING 100 MG/DL (74-106); POTASSIUM SERUM 3.4 MMOL/L (3.5-5.1); SODIUM LEVEL 138 MMOL/L (136-145); TOTAL PROTEIN 6.6 G/DL (5.7-8.2)
[2024-10-07 19:57] VITALS: BP 116/74; TEMP 97.7; O2SAT 96
[2024-10-07] MEDS: POTASSIUM CHLORIDE 10MEQ SR TABLET PO SCH (21:38)
[2024-10-07] MEDS: PANTOPRAZOLE 40MG VIAL IV SCH (21:39)
[2024-10-07] MEDS ORDERED: ACETAMINOPHEN 325 MG TAB PO PRN (21:45)
[2024-10-07] MEDS: ACETAMINOPHEN *IV* 1,000 MG in IV 1 EA IV ONE (22:22)
[2024-10-08 04:09] VITALS: BP 120/65; TEMP 97.2; O2SAT 97
[2024-10-08] MEDS: ONDANSETRON 4MG 2ML VIAL IV PRN (04:13)
[2024-10-08 06:23] LABS: BASO % 0.2 % (0.0-1.0); EOS % 0.4 % (0.0-3.0); HEMATOCRIT 34.9 % (36.0-47.0); HEMOGLOBIN 11.6 g/dl (12.0-15.5); LYMPH # 1.1 10^3/uL (1.5-5.0); LYMPH % 11.3 % (24.0-44.0); MEAN CORPUSCULAR HEMOGLOBIN 29.8 pg (27.0-33.0); MEAN CORPUSCULAR HGB CONC 33.2 g/dl (32.0-36.5); MEAN CORPUSCULAR VOLUME 89.7 fl (80.0-96.0); MONO # 0.8 10^3/uL (0.0-0.8); MONO % 7.8 % (2.0-8.0); NEUTROPHILS # 7.8 10^3/uL (1.5-8.5); NEUTROPHILS % 79.9 % (36.0-66.0); PLATELET COUNT, AUTOMATED 294 10^3/uL (150-450); RED BLOOD COUNT 3.89 10^6/uL (4.00-5.40); WHITE BLOOD COUNT 9.8 10^3/uL (4.0-10.0)
[2024-10-08 06:45] LABS: CALCIUM LEVEL 8.1 MG/DL (8.3-10.6); CREATININE FOR GFR 0.87 MG/DL (0.55-1.30); GLOMERULAR FILTRATION RATE 65.3 (>32); MAGNESIUM LEVEL 1.7 MG/DL (1.8-2.4); POTASSIUM SERUM 3.6 MMOL/L (3.5-5.1)
[2024-10-08] MEDS: MAG SULF 1GM/100ML (MAG RUN) 1 GM in IV 1 EA IV ONE (08:50)
[2024-10-08] MEDS ORDERED: PANTOPRAZOLE 40MG VIAL IV SCH (09:00)
[2024-10-08] MEDS ORDERED: LIDOCAINE 1% MDV 20ML VIAL As Ordered ONE (12:06)
[2024-10-08] MEDS: LIDOCAINE 1% MDV 20ML VIAL SC SCH (12:10)
[2024-10-08] MEDS ORDERED: GASTROGRAFIN SOLUTION 30ML As Ordered ONE (12:35)
[2024-10-08] MEDS ORDERED: ISOVUE-370 76% 100ML VIAL As Ordered ONE (12:36)
[2024-10-08 13:06] VITALS: BP 130/60; TEMP 97; O2SAT 95
[2024-10-08 20:08] VITALS: BP 132/63; TEMP 97.5; O2SAT 95
[2024-10-09 03:55] VITALS: BP 130/70; TEMP 97.2; O2SAT 96
[2024-10-09 06:08] LABS: BASO % 0.3 % (0.0-1.0); EOS # 0.1 10^3/uL (0.0-0.5); EOS % 0.8 % (0.0-3.0); HEMATOCRIT 34.8 % (36.0-47.0); HEMOGLOBIN 11.4 g/dl (12.0-15.5); LYMPH # 1.2 10^3/uL (1.5-5.0); LYMPH % 15.5 % (24.0-44.0); MEAN CORPUSCULAR HEMOGLOBIN 29.3 pg (27.0-33.0); MEAN CORPUSCULAR HGB CONC 32.8 g/dl (32.0-36.5); MEAN CORPUSCULAR VOLUME 89.5 fl (80.0-96.0); MONO # 0.6 10^3/uL (0.0-0.8); MONO % 8.5 % (2.0-8.0); NEUTROPHILS # 5.5 10^3/uL (1.5-8.5); NEUTROPHILS % 74.4 % (36.0-66.0); PLATELET COUNT, AUTOMATED 325 10^3/uL (150-450); RED BLOOD COUNT 3.89 10^6/uL (4.00-5.40); WHITE BLOOD COUNT 7.4 10^3/uL (4.0-10.0)
[2024-10-09 06:30] LABS: CALCIUM LEVEL 8.4 MG/DL (8.3-10.6); CREATININE FOR GFR 0.91 MG/DL (0.55-1.30); GLOMERULAR FILTRATION RATE 61.8 (>32); POTASSIUM SERUM 3.7 MMOL/L (3.5-5.1)
[2024-10-09] MEDS ORDERED: ONDA-83 PO (09:29)
[2024-10-09] MEDS ORDERED: ALBU8.5H INH (09:29)
[2024-10-09] MEDS ORDERED: SUCR1TAB56 PO (09:31)
[2024-10-09] MEDS ORDERED: PANT-23 PO (09:31)
[2024-10-09] MEDS ORDERED: PRES10CA2 PO (09:31)
[2024-10-09] MEDS ORDERED: VITA200012 PO (09:33)
[2024-10-09] MEDS ORDERED: HOME MED LIST COMPLETE! XX SCH (09:35)
[2024-10-09 12:00] VITALS: BP 104/53; TEMP 97.3; O2SAT 97
[2024-10-09 20:12] VITALS: BP 123/62; TEMP 97.7; O2SAT 96
[2024-10-10 05:02] VITALS: BP 123/62; TEMP 97; O2SAT 96
[2024-10-10 06:40] LABS: BASO % 0.4 % (0.0-1.0); EOS # 0.1 10^3/uL (0.0-0.5); EOS % 1.2 % (0.0-3.0); HEMATOCRIT 36.1 % (36.0-47.0); HEMOGLOBIN 11.7 g/dl (12.0-15.5); LYMPH # 1.7 10^3/uL (1.5-5.0); MEAN CORPUSCULAR HGB CONC 32.4 g/dl (32.0-36.5); MEAN CORPUSCULAR VOLUME 89.4 fl (80.0-96.0); MONO # 0.8 10^3/uL (0.0-0.8); NEUTROPHILS # 4.9 10^3/uL (1.5-8.5); NEUTROPHILS % 64.9 % (36.0-66.0); PLATELET COUNT, AUTOMATED 324 10^3/uL (150-450); RED BLOOD COUNT 4.04 10^6/uL (4.00-5.40); WHITE BLOOD COUNT 7.6 10^3/uL (4.0-10.0)
[2024-10-10 07:01] LABS: CALCIUM LEVEL 8.2 MG/DL (8.3-10.6); CREATININE FOR GFR 0.86 MG/DL (0.55-1.30); GLOMERULAR FILTRATION RATE 66.2 (>32); POTASSIUM SERUM 3.7 MMOL/L (3.5-5.1)
[2024-10-10] MEDS ORDERED: PANT-23 PO (10:05)
[2024-10-10] MEDS ORDERED: MAGN400T2 PO (10:05)
[2024-10-10] MEDS ORDERED: SUCR1ORA PO (10:05)
[2024-10-19] MEDS ORDERED: MAGN400T35 PO (17:20)
[2024-10-19] MEDS ORDERED: PANT-23 PO (17:20)
== END 2024-10-10 11:55 | disposition home or self-care (01) ==
LOC: INTOOBSV 16:07 → M MSPAV 16:07
PROVIDERS: ADMIT Internal Medicine Nephrology; ATTEND Internal Medicine Nephrology
DX: K21.9 Gastro-esophageal reflux disease without esophagitis (principal); K26.9 Duodenal ulcer, unspecified as acute or chronic, without hemorrhage or perforation; E83.42 Hypomagnesemia; E87.6 Hypokalemia; J98.11 Atelectasis; N28.1 Cyst of kidney, acquired; K76.0 Fatty (change of) liver, not elsewhere classified; K57.30 Diverticulosis of large intestine without perforation or abscess without bleeding; E78.5 Hyperlipidemia, unspecified; J45.909 Unspecified asthma, uncomplicated; G47.30 Sleep apnea, unspecified; I10 Essential (primary) hypertension; Z79.52 Long term (current) use of systemic steroids; Z79.02 Long term (current) use of antithrombotics/antiplatelets; Z79.83 Long term (current) use of bisphosphonates; Z79.899 Other long term (current) drug therapy; Z88.8 Allergy status to other drugs, medicaments and biological substances; Z91.048 Other nonmedicinal substance allergy status
CPT/HCPCS: 36415; 49180; 77012; 80048; 80053; 82378; 83735; 85025; 85610; 85730; 86301; 88305; 96361; 96375; 96376; 97116; 97161; G0378; J0131; J2405; J2470; J3475; Q9963; Q9967

== ENCOUNTER → 2024-10-18 | Outpatient (CLI) | payer MEDICARE, BC ==
[~2024-10-18] MED LIST changes: +ALBU8.5H INH; +MAGN400T2 PO; +MAGN400T35 PO; +ONDA-83 PO; +PANT-23 PO; +PRES10CA2 PO; +SUCR1ORA PO; +SUCR1TAB56 PO; +VITA200012 PO
== END ==
LOC: M ONCR 14:26
PROVIDERS: ATTEND General Practice
DX: D48.3 Neoplasm of uncertain behavior of retroperitoneum (principal); R25.2 Cramp and spasm; R10.84 Generalized abdominal pain; R11.2 Nausea with vomiting, unspecified; R63.39 Other feeding difficulties

== ENCOUNTER → 2024-11-18 | Outpatient (CLI) | payer MEDICARE, BC ==
[~2024-11-18] MED LIST changes: +DOCU5LIQ JT; +LIDO1ADH93 TOP; -LIDO5DIS41 TOP; +MAGN400T35 JT; +MIRA33506 JT; +OMEP90SU GT; +OXYC7.5T3 JT; +Scopolamine TOP; +TRAN1DIS4 TOP
[2024-11-18] MEDS: OCTREOTIDE 20 MG IM SCH (15:07)
== END ==
LOC: M ONCR 14:22
PROVIDERS: ATTEND General Practice
DX: C7A.010 Malignant carcinoid tumor of the duodenum (principal); K27.9 Peptic ulcer, site unspecified, unspecified as acute or chronic, without hemorrhage or perforation; J30.2 Other seasonal allergic rhinitis; Z85.51 Personal history of malignant neoplasm of bladder; Z88.2 Allergy status to sulfonamides; Z79.899 Other long term (current) drug therapy; Z93.1 Gastrostomy status
CPT/HCPCS: 96402; G0463; J2353

== ENCOUNTER → 2025-01-18 | Outpatient (CLI) | payer MEDICARE, BC ==
[~2025-01-18] MED LIST changes: +SODIUM CHLORIDE 0.9% 1000 ML XX SCH
[2025-01-18 12:15] VITALS: BP 176/74; TEMP 97.5; O2SAT 100
[2025-01-18] MEDS: ISOVUE-300 61% 100 ML VIAL IV SCH (13:49)
[2025-01-18] MEDS: LIDOCAINE 2% JELLY 6 ML SYRINGE TOP SCH (13:52)
== END ==
LOC: M IRPRO 11:55
PROVIDERS: ATTEND Radiology Diagnostic Radiology
DX: K26.9 Duodenal ulcer, unspecified as acute or chronic, without hemorrhage or perforation (principal)

== ENCOUNTER → 2025-01-18 | Outpatient (CLI) | payer MEDICARE, BC ==
[~2025-01-18] MED LIST changes: -SODIUM CHLORIDE 0.9% 1000 ML XX SCH
[2025-01-18 15:22] LABS: BASO # 0.0 10^3/uL (0.0-0.2); BASO % 0.7 % (0.0-1.0); EOS # 0.1 10^3/uL (0.0-0.5); EOS % 1.9 % (0.0-3.0); LYMPH # 1.3 10^3/uL (1.5-5.0); LYMPH % 22.7 % (24.0-44.0); MONO # 0.4 10^3/uL (0.0-0.8); MONO % 6.8 % (2.0-8.0); NEUTROPHILS # 3.9 10^3/uL (1.5-8.5); NEUTROPHILS % 67.7 % (36.0-66.0); PLATELET COUNT, AUTOMATED 323 10^3/uL (150-450)
[2025-01-18 15:50] LABS: ALT/SGPT 20.0 U/L (7.0-40); AST/SGOT 29.0 U/L (<34); CALCIUM LEVEL 9.1 MG/DL (8.3-10.6); CARBON DIOXIDE LEVEL 33.0 MMOL/L (20-31); CHLORIDE LEVEL 102.0 MMOL/L (98-107); CREATININE FOR GFR 1.0 MG/DL (0.55-1.30); GLOMERULAR FILTRATION RATE 55.2 (>32); POTASSIUM SERUM 4.6 MMOL/L (3.5-5.1); SODIUM LEVEL 144.0 MMOL/L (136-145)
== END ==
LOC: M ONCR 14:00
PROVIDERS: ATTEND General Practice
DX: C7A.010 Malignant carcinoid tumor of the duodenum (principal); C67.9 Malignant neoplasm of bladder, unspecified; K22.2 Esophageal obstruction; Z79.899 Other long term (current) drug therapy; Z91.02 Food additives allergy status; J30.89 Other allergic rhinitis; Z93.1 Gastrostomy status
CPT/HCPCS: 36415; 80053; 85025; 86316; G0463

== ENCOUNTER → 2025-02-04 | Outpatient (CLI) | payer MEDICARE, BC ==
[~2025-02-04] VITALS: Ht 154.9 cm; Wt 66.2 kg
[2025-02-04] MEDS: OCTREOTIDE 20 MG IM ONE (12:29)
== END ==
LOC: M ONCR 12:10
PROVIDERS: ATTEND General Practice
DX: C48.8 Malignant neoplasm of overlapping sites of retroperitoneum and peritoneum (principal); Z93.1 Gastrostomy status

== ENCOUNTER → 2025-02-04 | Outpatient (POV) | payer MEDICARE, BC ==
[~2025-02-04] VITALS: Ht 157.5 cm; Wt 60.4 kg
[2025-02-04 11:10] VITALS: BP 122/84; O2SAT 99
== END ==
LOC: M IRPOV 10:38
PROVIDERS: ATTEND Radiology Diagnostic Radiology
DX: Z45.2 Encounter for adjustment and management of vascular access device (principal); J30.2 Other seasonal allergic rhinitis
CPT/HCPCS: 96402; G0463; J2353

== ENCOUNTER → 2025-02-09 | Outpatient (CLI) | payer MEDICARE, BC ==
[2025-02-09 10:07] LABS: CREATININE FOR GFR 0.97 MG/DL (0.55-1.30); GLOMERULAR FILTRATION RATE 57.3 (>32)
== END ==
LOC: M LAB 09:00
PROVIDERS: ATTEND Colon & Rectal Surgery
DX: D3A.8 Other benign neuroendocrine tumors (principal)

== ENCOUNTER → 2025-02-15 | Outpatient (CLI) | payer MEDICARE, BC ==
[~2025-02-15] MED LIST changes: +ISOVUE-370 76% 100 ML VIAL As Ordered ONE
== END ==
LOC: M RAD 14:44
PROVIDERS: ATTEND Colon & Rectal Surgery
DX: D3A.8 Other benign neuroendocrine tumors (principal)
CPT/HCPCS: 74178; Q9967

== ENCOUNTER → 2025-03-07 | Outpatient (CLI) | payer MEDICARE, BC ==
[~2025-03-07] MED LIST changes: -ISOVUE-370 76% 100 ML VIAL As Ordered ONE
[2025-03-07 10:17] LABS: BASO # 0.0 10^3/uL (0.0-0.2); BASO % 0.3 % (0.0-1.0); EOS # 0.1 10^3/uL (0.0-0.5); EOS % 1.4 % (0.0-3.0); LYMPH # 1.0 10^3/uL (1.5-5.0); LYMPH % 16.4 % (24.0-44.0); MONO # 0.3 10^3/uL (0.0-0.8); MONO % 5.3 % (2.0-8.0); NEUTROPHILS # 4.9 10^3/uL (1.5-8.5); NEUTROPHILS % 76.3 % (36.0-66.0); PLATELET COUNT, AUTOMATED 341 10^3/uL (150-450)
[2025-03-07 10:40] LABS: ALT/SGPT 21.0 U/L (7.0-40); AST/SGOT 27.0 U/L (<34); CALCIUM LEVEL 9.5 MG/DL (8.3-10.6); CARBON DIOXIDE LEVEL 32.0 MMOL/L (20-31); CHLORIDE LEVEL 100.0 MMOL/L (98-107); CREATININE FOR GFR 0.94 MG/DL (0.55-1.30); GLOMERULAR FILTRATION RATE 59.5 (>32); POTASSIUM SERUM 4.7 MMOL/L (3.5-5.1); SODIUM LEVEL 142.0 MMOL/L (136-145)
== END ==
LOC: M LAB 08:44
PROVIDERS: ATTEND General Practice
DX: C7A.010 Malignant carcinoid tumor of the duodenum (principal)

== ENCOUNTER → 2025-03-09 | Outpatient (REF) | payer MEDICARE, BC ==
[2025-03-09 18:28] LABS: APPEARANCE, URINE HAZY (CLEAR); BACTERIA, URINE AUTO 1+ (NEGATIVE); BILIRUBIN, URINE AUTO NEGATIVE (NEGATIVE); BLOOD, URINE BLOOD NEGATIVE (NEGATIVE); GLUCOSE, URINE (UA) AUTO NEGATIVE (NEGATIVE); KETONE, URINE AUTO NEGATIVE (NEGATIVE); LEUKOCYTE ESTERASE, URINE AUTO 3+ (NEGATIVE); NITRITE, URINE AUTO NEGATIVE (NEGATIVE); PROTEIN, URINE AUTO 1+ mg/dL (NEGATIVE); RBC, URINE AUTO 3 /HPF (0-3); SPECIFIC GRAVITY URINE AUTO 1.016 (1.002-1.035); SQUAMOUS EPITHELIAL CELL UR AU 2 /HPF (0-6); UROBILINOGEN, URINE AUTO 0.2 mg/dL (0.0-2.0); WBC, URINE AUTO 69 /HPF (0-3)
== END ==
LOC: M LAB REF 17:13
PROVIDERS: ATTEND Urology
DX: Z85.51 Personal history of malignant neoplasm of bladder (principal)

== ENCOUNTER → 2025-05-10 | Outpatient (CLI) | payer MEDICARE, BC | LOC: M ONCR 14:18 | PROVIDERS: ATTEND General Practice | DX: C7A.010 Malignant carcinoid tumor of the duodenum (principal) ==

== ENCOUNTER → 2025-05-11 | Outpatient (CLI) | payer MEDICARE, BC ==
[2025-05-11 10:43] LABS: CALCIUM LEVEL 8.8 MG/DL (8.3-10.6); CARBON DIOXIDE LEVEL 33.0 MMOL/L (20-31); CHLORIDE LEVEL 100.0 MMOL/L (98-107); CREATININE FOR GFR 0.9 MG/DL (0.55-1.30); GLOMERULAR FILTRATION RATE 62.7 (>32); POTASSIUM SERUM 4.8 MMOL/L (3.5-5.1); SODIUM LEVEL 139.0 MMOL/L (136-145)
== END ==
LOC: M LAB 09:38
PROVIDERS: ATTEND Colon & Rectal Surgery
DX: D3A.8 Other benign neuroendocrine tumors (principal)

== ENCOUNTER → 2025-05-13 | Outpatient (REF) | payer MEDICARE, BC | LOC: M LAB REF 09:54 | PROVIDERS: ATTEND General Practice | DX: C7A.010 Malignant carcinoid tumor of the duodenum (principal) ==

== ENCOUNTER → 2025-05-16 | Outpatient (CLI) | payer MEDICARE, BC ==
[~2025-05-16] MED LIST changes: +GASTROGRAFIN SOLUTION 30 ML ONE; +ISOVUE-370 76% 100 ML VIAL ONE
== END ==
LOC: M PLAIMG 08:47
PROVIDERS: ATTEND Registered Nurse
DX: D3A.8 Other benign neuroendocrine tumors (principal)
CPT/HCPCS: 74178; Q9963; Q9967

== ENCOUNTER → 2025-06-07 | Outpatient (CLI) | payer MEDICARE, BC ==
[~2025-06-07] VITALS: Ht 154.9 cm; Wt 66.9 kg
[~2025-06-07] MED LIST changes: -GASTROGRAFIN SOLUTION 30 ML ONE; -ISOVUE-370 76% 100 ML VIAL ONE; +OCTREOTIDE 20 MG IM SCH
[2025-06-07] MEDS: OCTREOTIDE 20 MG IM SCH (15:48)
== END ==
LOC: M ONCR 15:14
PROVIDERS: ATTEND General Practice
DX: C7A.010 Malignant carcinoid tumor of the duodenum (principal); C67.9 Malignant neoplasm of bladder, unspecified; K22.2 Esophageal obstruction; J30.89 Other allergic rhinitis; Z88.8 Allergy status to other drugs, medicaments and biological substances; Z79.899 Other long term (current) drug therapy
CPT/HCPCS: 96402; G0463; J2353